=== PATIENT | female | born 1970 | race Caucasian/White ===

== ENCOUNTER → 2017-03-21 | Outpatient (CLI) | payer BC, OTHER | LOC: RAD 01:23 | DX: Z12.31 Encounter for screening mammogram for malignant neoplasm of breast (principal); R10.11 Right upper quadrant pain ==

== ENCOUNTER → 2020-12-03 | Outpatient (CLI) | payer OTHER | LOC: RAD 10:28 | PROVIDERS: ATTEND Pediatrics | DX: J84.10 Pulmonary fibrosis, unspecified (principal); R06.00 Dyspnea, unspecified ==

== ENCOUNTER → 2021-01-14 | Outpatient (CLI) | payer OTHER ==
--- NOTE | ~2021-01-14 | MCT ---
[facility] [place] [address] METHACHOLINE CHALLENGE TEST Name: KEEGAN JONES Room #: REG [facility] Mary#: [id number] Admission: 01/14/21 Attend Phys: Néstor Alfredo MD Discharge: Date of : 66 Report #: [id number] THIS REPORT FOR: //name// Height: in Exam Date: Weight: lbs BTPS: X >> PRE BRONCHODILATOR: PREDICTED BEST %PRED FORCED VITAL CAPACITY (FRC) L LPM % FORCED EXP VOL/SEC (FEV1) L FEV/FVC % MAX MID-EXP FLOW (FEF 25-75) L/SEC L/SEC % PEAK EXP FLOW RATE (FEF MAX) L/MIN L/MIN MED-VC RATIO (FEF 50/FEF 50) .09 Baseline: Phenol Saline Level 1: 0.025 mg/ml BEST %PRED %CHANGE BEST %PRED %CHANGE FVC L % % FVC L % % FEV1 L % % FEV1 L % % Level 2: 0.25 mg/ml Level 3: 2.5 mg/ml BEST %PRED %CHANGE BEST %PRED %CHANGE FVC L % % FVC L % % FEV1 L % % FEV1 L % % . Level 4: 10 mg/ml Level 5: 25 mg/ml BEST %PRED %CHANGE BEST %PRED %CHANGE FVC L % % FVC L % % FEV1 L % % FEV1 L % % Post Bronchodilator: 1st Treatment Post Bronchodilator: 2nd Treatment BEST %PRED %CHANGE BEST %PRED %CHANGE FVC L % % FVC L % % FEV1 L % % FEV1 L % % Post Bronchodilator: 3rd Treatment BEST %PRED %CHANGE FVC L % % FEV1 L % % >> INTERPRETATION: [facility] [address] [place] [address] METHACHOLINE CHALLENGE TEST Name: KARENKEEGAN BRITNEY [id number] Admission: 01/14/21 Attend Phys: Néstor Alfredo MD Discharge: Date of : 66 Report #: [id number] DOC #: [id number] cc: MD Marquez Armas MD DATE OF SERVICE: 01/14/2021 Pre-MCT spirometry showed mildly decreased flows. At the second level of MCT administration, the patient exhibited -25% decline in FEV1. IMPRESSION: Positive methacholine challenge test, mildly reactive. Post-MCT spirometry returned to baseline. Marquez Gaspar MD TKK/NIT By: Marquez Gaspar MD /nt
--- NOTE | ~2021-01-14 | SPIROMETRY ---
[facility] [place] [address] [address] SPIROMETRY Name: KEEGAN JONES Room #: REG [facility]#: [id number] Admission: 01/14/21 Attend Phys: Néstor Alfredo MD Discharge: Date of : 66 Report #: [id number] THIS REPORT FOR: //name// >> SPIROMETRY: (BTPS) Height: in cm Weight: lbs kg Exam Date: PRE-RX POST-RX PRED BEST %PRED BEST %PRED %CHG FVC LITERS . . . . . . FEV1 LITERS . . . . . . FEV1/FVC % . . . . . . SGW23-78% L/Sec . . . . . . PEF L/SEC . . . . . . FEF50/FIF50 UNITLESS . . . . . . >> INTERPRETATION/IMPRESSION: DOC #: [id number] cc: MD Marquez Armas MD DATE OF SERVICE: 01/14/2021 PULMONARY FUNCTION TEST Spirometric examination showed normal flows. Lung volumes are normal. Diffusion capacity is normal, corrected for alveolar volume. Flow volume loop is normal. IMPRESSION: Normal pulmonary functions. Marquez Gaspar MD TKK/HERNANDEZ By: MD phuong Gonzales
== END ==
LOC: PUL 08:04
PROVIDERS: ATTEND Pediatrics
DX: R06.02 Shortness of breath (principal)